=== PATIENT | male | born 1985 | race Two or more races ===

== ENCOUNTER 2025-07-01 05:41 | Emergency (ER) | payer BC ==
[2025-07-01] MEDS ORDERED: Sodium Chloride 0.9% 2.5 ML Syringe FLUSH PRN (06:01)
[2025-07-01] MEDS ORDERED: Sodium Chloride 0.9% 10 ML Syringe FLUSH PRN (06:01)
[2025-07-01 06:02] LABS: BASOPHILS ABSOLUTE AUTO 0.08 K/uL (0.00-0.20); BASOPHILS PERCENT AUTO 0.7 % (0.0-1.0); EOSINOPHILS ABSOLUTE AUTO 0.10 K/uL (0.00-0.45); EOSINOPHILS PERCENT AUTO 0.8 % (0.0-6.0); IMMATURE GRAN ABSOLUTE AUTO 0.12 K/uL (0.00-0.05); IMMATURE GRAN PERCENT AUTO 1.0 % (0.0-0.4); LYMPHOCYTES ABSOLUTE AUTO 3.09 K/uL (1.00-4.80); LYMPHOCYTES PERCENT AUTO 25.9 % (24.0-44.0); MEAN PLATELET VOLUME 9.8 fL (9.4-12.4); MONOCYTES ABSOLUTE AUTO 0.65 K/uL (0.00-0.80); MONOCYTES PERCENT AUTO 5.4 % (0.0-8.0); NEUTROPHILS ABSOLUTE AUTO 7.90 K/uL (1.80-7.70); NEUTROPHILS PERCENT AUTO 66.2 % (41.0-71.0); NRBC ABSOLUTE 0.00 K/uL (0.00-0.02); NRBC PERCENT 0.0 /100WBC (0.0-0.2); PLATELET COUNT,PLT 285 K/uL (150-400); RED BLOOD CELL COUNT 4.88 M/uL (4.52-5.90); WHITE BLOOD CELL COUNT,WBC 11.94 K/uL (3.9-11.3)
[2025-07-01] MEDS: Ondansetron 4 MG Tab.DIS PO ONE (06:24)
[2025-07-01 06:28] LABS: A/G RATIO 1.0 (0.9-1.6); ALANINE AMINOTRANSFERASE,ALT 122.0 IU/L (14-63); ASPARTATE AMNIOTRANSFERASE,AST 51.0 IU/L (15-37); BILIRUBIN TOTAL 0.6 mg/dL (0.2-1.0); BLOOD UREA NITROGEN,BUN 11.0 mg/dL (7.0-18.0); CARBON DIOXIDE,CO2 28.8 mmol/L (21.0-32.0); CHLORIDE,CL 101.0 mmol/L (98-107); CREATININE 0.7 mg/dL (0.8-1.3); EST CRCL DRUG DOSING (CG) 147.74 mL/min; GLUCOSE RANDOM 117.0 mg/dL (74-106); POTASSIUM,K 4.0 mmol/L (3.5-5.1); PROTEIN TOTAL,TP 7.9 g/dL (6.4-8.2); SODIUM,NA 140.0 mmol/L (136-148)
[2025-07-01 06:34] LABS: ESTIMATED GFR 121.0 mL/min (>60)
[2025-07-01] MEDS: Iopamidol 755 MG/ML 500 ML Multipack Bottle IVPUSH STA (07:00)
[2025-07-01] MEDS: Alum Hydrox/Mag Hydrox/Simeth 15 ML, Lidocaine 2% 5 ML PO ONE (08:47)
[2025-07-01] MEDS ORDERED: Naloxone 0.4 MG/ML SDV IVPUSH PRN (10:12)
== END 2025-07-01 13:40 ==
LOC: MW.ED 05:41
DX: K80.50 Calculus of bile duct without cholangitis or cholecystitis without obstruction (principal); E86.0 Dehydration
CPT/HCPCS: 36415; 71045; 71260; 74177; 76705; 80053; 82977; 83690; 83735; 84484; 85025; 87428; 93005; 96361; 96374; 96376; 99285; A9270; J2270; J3490; J7030; Q9967; 99284